=== PATIENT | female | born 1985 | race Caucasian/White ===

== ENCOUNTER 2023-08-06 17:13 | Emergency (ER) | payer OTHER, SELFPAY ==
[2023-08-06 17:23] VITALS: BP 170/110
--- NOTE | 2023-08-06 18:02 | ED.GENMED ---
History of Present Illness
<Olivia Valentine PA-C - Last Filed: 08/06/23 21:03>
General
Chief Complaint: Musculo-Skeletal Complaint
Source: patient
Exam Limitations: none
Time Seen by Provider: 08/06/23 17:49
Nursing documentation reviewed up to this point in time: agreed with
Travel History
Have you had any contact with someone who has COVID-19?: No
Do you have any symptoms of coronavirus? Fever > 100 degrees, chills, cough, shortness of breath, sore throat, loss of taste or smell, muscle aches, or headache?: No
History of Present Illness
History of Present Illness:
Patient is a 37-year-old female at 8 weeks gestation presenting for evaluation of right lower extremity pain and swelling. Patient states that she first noticed the cramping/tight sensation in right calf about the time that she became .
Describes it as similar to a 'charley horse 'feeling. She also endorses some swelling. Pain has persisted and has been worsening throughout . She is able to bear weight. Patient denies any fever, chills, chest pain or shortness of
breath.
Patient is currently taking prednisone and hormonal therapy as was conceived via IVF and has multiple history miscarriages. Patient denies any personal history of blood clots or known clotting disorders. Patient's father does have a
history of DVT.
Patient is following with Dr. Zayas at [facility] who recommended that patient be seen in the emergency department to rule out a blood clot.
Phy Exam
<Olivia Valentine PA-C - Last Filed: 08/06/23 21:03>
Physical Exam
Physical Exam:
General: In no apparent distress, nontoxic
Vitals: Hypertensive, otherwise vital signs stable; afebrile
HEENT: Atraumatic, normocephalic; pupils equal round and reactive light bilaterally, protecting airway
Neck: appears supple, no JVD
CV: Regular rate and rhythm, heart sounds normal, no evidence of cyanosis
Resp: No evidence of respiratory distress, lungs clear bilaterally
Abd: Non-distended
Extremities: Mild tenderness to right mid calf without any appreciable swelling, redness, warmth; DP, PT and popliteal pulse palpable in right lower extremity; neurovascularly intact; no obvious skin changes or palpable cord on right lower extremity
Neuro: alert and oriented x 3; grossly intact
Psych: Normal affect
Skin: Intact, no rashes
Course
<Olivia Valentine PA-C - Last Filed: 08/06/23 21:03>
Orders/Labs/Results
Orders:
Orders
08/06/23 17:18
US Periph Venous LOWER Ext RT Urgent
Comment:
Reason For Exam: calf pain/swelling
08/06/23 19:24
Case Management Consult ONCE
Case Management Consult: Other
Comment: DVT discharge planning
08/06/23 19:44
Complete Blood Count/With Diff Urgent
08/06/23 19:45
Comprehensive Metabolic Panel Urgent
PTT Urgent
Prothrombin Time Urgent
08/06/23 20:43
Enoxaparin Sodium [Lovenox] 80 mg SC NOW STA
08/06/23 20:54
Enoxaparin Sodium [Lovenox] 120 mg SC NOW STA
Abnormal Lab Results
08/06/23 08/06/23
19:44 19:45
WBC 13.5 H 10^3/uL
(4.8-10.8)
RDW 15.9 H %
(11.5-14.5)
Abs Immat Gran (auto) 0.1 H 10^3/uL
(0-0.05)
Absolute Neuts (auto) 9.1 H 10^3/uL
(1.4-6.5)
Absolute Monos (auto) 0.9 H 10^3/uL
(0.1-0.6)
Immature Gran % 1.0 H %
(0-0.5)
Sodium 133 L mmol/L
(135-145)
BUN 24 H mg/dl
(7-17)
Glucose 102 H mg/dl
(70-99)
08/06/23 19:44
08/06/23 19:45
Vital Signs
Initial and Last Documented VS:
Initial Vital Signs
Temp Pulse Resp BP Pulse Ox
98.8 F 100 17 170/110 100
08/06/23 17:23 08/06/23 17:23 08/06/23 17:23 08/06/23 17:23 08/06/23 17:23
Last Documented Vital Signs
Temp Pulse Resp BP Pulse Ox
98.8 F 97 18 152/100 99
08/06/23 17:23 08/06/23 18:31 08/06/23 18:31 08/06/23 18:31 08/06/23 18:31
<Mulu Whitlock MD - Last Filed: 08/06/23 20:27>
Orders/Labs/Results
Orders:
Orders
08/06/23 17:18
US Periph Venous LOWER Ext RT Urgent
Comment:
Reason For Exam: calf pain/swelling
08/06/23 19:24
Case Management Consult ONCE
Case Management Consult: Other
Comment: DVT discharge planning
08/06/23 19:44
Complete Blood Count/With Diff Urgent
08/06/23 19:45
Comprehensive Metabolic Panel Urgent
PTT Urgent
Prothrombin Time Urgent
08/06/23 20:43
Enoxaparin Sodium [Lovenox] 80 mg SC NOW STA
08/06/23 20:54
Enoxaparin Sodium [Lovenox] 120 mg SC NOW STA
Abnormal Lab Results
08/06/23 08/06/23
19:44 19:45
WBC 13.5 H 10^3/uL
(4.8-10.8)
RDW 15.9 H %
(11.5-14.5)
Abs Immat Gran (auto) 0.1 H 10^3/uL
(0-0.05)
Absolute Neuts (auto) 9.1 H 10^3/uL
(1.4-6.5)
Absolute Monos (auto) 0.9 H 10^3/uL
(0.1-0.6)
Immature Gran % 1.0 H %
(0-0.5)
Sodium 133 L mmol/L
(135-145)
BUN 24 H mg/dl
(7-17)
Glucose 102 H mg/dl
(70-99)
08/06/23 19:44
08/06/23 19:45
Vital Signs
Initial and Last Documented VS:
Initial Vital Signs
Temp Pulse Resp BP Pulse Ox
98.8 F 100 17 170/110 100
08/06/23 17:23 08/06/23 17:23 08/06/23 17:23 08/06/23 17:23 08/06/23 17:23
Last Documented Vital Signs
Temp Pulse Resp BP Pulse Ox
98.8 F 97 18 152/100 99
08/06/23 17:23 08/06/23 18:31 08/06/23 18:31 08/06/23 18:31 08/06/23 18:31
<Olivia Valentine PA-C - Last Filed: 08/06/23 21:03>
MDM/Problems Addressed
Differential Diagnosis Includes:
Not limited to: DVT, muscle strain, Tripp's cyst, contusion, effusion
MDM/Problems Addressed:
Patient is a 37-year-old female at 8 weeks gestation presenting for evaluation of persistent atraumatic right lower extremity pain and concern for possible DVT. Patient underwent IVF approximate weeks ago was referred to emergency department to
rule out DVT from fertility specialist as pain has been present for past 6 weeks. No personal history of blood clots. Patient on multiple medications to support early at this moment including hormone replacement and steroids. Patient is
hypertensive, otherwise vital signs stable. Exam as above. Will check ultrasound. No shortness of breath, chest pain, or signs to indicate PE.
Ultrasound shows acute occlusive DVT in right peroneal and gastrocnemius vein. Discussed with patient. She reports local skin reaction to Lovenox early in . Will check basic labs, coag studies. Will touch base with patient's fertility
specialist for input in management of patient given and past reaction to Lovenox.
Attending physician spoke directly with Dr. Berumen's fertility doctor. He recommends discharge with Lovenox injection twice daily. He will follow her closely outpatient. Gave patient first dose in emergency department tonight.
Remainder of prescription sent to pharmacy. Return precautions discussed at length. She will follow with the fertility specialist and [facility] for the duration of . Patient comfortable with plan. All questions answered.
Chronic conditions affecting care:
via IVF
Acute Exacerbation and/or Progression of Chronic Illness:
N/A
<Olivia Valentine PA-C - Last Filed: 08/06/23 21:03>
*Radiology
Radiology exam reviewed: radiology read reviewed
*Pulse Oximetry
Patient hypoxic: no
*EKG
Interpreted by ED Provider?: NA
*Paint Factory Worker Interpretation
Rate: Paint Factory Worker- N/A
*Critical Care Note
Total Time (30-74mins, 75-104mins- exclusive of procedures): Not Applicable
<Olivia Valentine PA-C - Last Filed: 08/06/23 21:03>
Patient Management
Discussion with other providers: [employer] (Fertility specialist)
ED Attending Note
<Olivia Valentine PA-C - Last Filed: 08/06/23 21:03>
-
Portions of this chart may have been created with voice recognition software.� Occasional wrong word or��sound alike� substitutions may have occurred due to the inherent limitations of voice recognition software.
<Mulu Whitlock MD - Last Filed: 08/06/23 20:27>
ED Attending Note
Patient seen and examined by attending physician: Yes
I performed the substantive portion of visit, reviewed & personally made and approve the management plan that is documented in note by myself or MARIN.: Yes
ED Attending Note:
37 yr old female presents with R leg swelling, noted to have occlusive DVT here (see report). She is approx 8 ws , hx mult miscarriages in past, FH (father) of DVT. No cp,sob, etc to suggest PE. No bleeding.
On exam, R le with mild asx swelling, nl pulses, well perfused, FROM. No discoloration/skin changes. (no phlegmasia, etc).
Discharge Plan
Departure
Patient Disposition: Home (Routine Discharge)
Date of Disposition: 08/06/23
Time of Disposition: 20:44
Patient with high blood pressure during this ER visit?: Yes
Condition: Good
Covid-19: Not Applicable
Discharge Problem:
DVT (deep vein thrombosis) in
Instructions: Deep Vein Thrombosis (Blood Clots in the Legs) (DC), Enoxaparin
Prescriptions:
New
enoxaparin [Lovenox] 120 mg/0.8 mL syringe
120 mg SC Q12H 30 Days Qty: 48 0RF
Referrals:
Ailyn Hassan CRNP [Family Provider] -
Activity Restrictions/Additional Instructions:
- Return to the emergency room with any high fevers, chest pain, shortness of breath/difficulty breathing, severe pain/swelling/warmth of right lower extremity, numbness/tingling of right lower extremity, worsening in current symptoms, or any other
concerns
-As discussed�you should use the Lovenox twice a day. A prescription has been sent to your pharmacy. This medication will need to be continued throughout �I have sent the first 30-day supply. Your fertility specialist/[facility] will need to
continue prescription throughout the duration of your . You received your first injection while in the emergency department tonight.
-It is important that you follow-up with your fertility doctor for further evaluation/management and establish care with an [facility] to manage this throughout your .
Interventions
Interventions:
*Risk Screen - Suicide Last Done: 08/06/23 17:22
*General Assessment Last Done: 08/06/23 17:22
*Neglect/Abuse Screening Last Done: 08/06/23 17:22
ED- Fall Risk Assessment Last Done: 08/06/23 18:48
*ED COVID-19 Vaccine History Last Done: 08/06/23 17:22
ED-Musculoskeletal Assessment Last Done: 08/06/23 18:47
Discharge Date and Time
Print Language: QATARI
[2023-08-06 18:31] VITALS: BP 152/100
[2023-08-06 19:55] LABS: % Basophils 0.5 % (0-2); % Eosinophils 1.2 % (0-6); % Lymphocytes 23.4 % (20.5-51.1); % Monocytes 6.6 % (1.7-9.3); % Neutrophils 67.3 % (42.2-75.2); Absolute Basophils 0.1 10^3/uL (0-0.2); Absolute Eosinophils 0.2 10^3/uL (0-0.7); Absolute Immature Granulocytes 0.1 10^3/uL (0-0.05); Absolute Lymphocytes 3.2 10^3/uL (1.2-3.4); Absolute Monocytes 0.9 10^3/uL (0.1-0.6); Absolute Neutrophils 9.1 10^3/uL (1.4-6.5); Hematocrit 40.8 % (37.0-47.0); Hemoglobin 13.7 g/dL (12.0-16.0); Mean Corp Hgb Conc. 33.6 g/dL (33.0-37.0); Mean Corpuscular Hgb 27.5 pg (27.0-31.0); Mean Corpuscular Volume 81.8 fL (81.0-99.0); Mean Platelet Volume 9.8 fL (7.4-10.4); Nucleated Red Blood Cells % 0 %; Platelet Count 215 10^3/uL (130-400); Red Blood Cell Count 4.99 10^6/uL (4.20-5.40); Red Cell Dist. Width 15.9 % (11.5-14.5); White Blood Cell Count 13.5 10^3/uL (4.8-10.8)
[2023-08-06 20:05] LABS: INR 1.03; PT 13.5 Sec (11.4-14.6)
[2023-08-06 20:06] LABS: APTT 23.9 Sec (23.4-35.0)
[2023-08-06 20:08] LABS: ALT (SGPT) 20 U/L (0-35); AST (SGOT) 18 U/L (14-36); Albumin 4.3 g/dl (3.5-5.0); Alkaline Phosphatase 53 U/L (38-126); Blood Urea Nitrogen 24 mg/dl (7-17); Calcium 9.8 mg/dl (8.4-10.2); Carbon Dioxide 25 mmol/L (22-30); Chloride 98 mmol/L (98-107); Glucose 102 mg/dl (70-99); Potassium 4.1 mmol/L (3.5-5.1); Sodium 133 mmol/L (135-145); Total Bilirubin 0.4 mg/dl (0.2-1.3); eGFR > 60.00
[2023-08-06] MEDS: LOVENOX 120 MG SC (20:59)
--- NOTE | 2023-08-07 09:58 | CM ---
F/U phone call to patient Juliet.
Per Juliet she is waiting for pharmacy to call to let her know Lovenox rx is available.
Per Juliet she has a follow up appointment with Dr Zayas, fertility specialist on Friday and she is aware blood work will need to be ordered and required while on the Lovenox.
Per [facility] [phone], they will not have Lovenox script in until tomorrow.
Spoke with Juliet, she also called and [facility] and they have 2 syringes available for her today which she is on the way to picker tender helper now, and the rest of the script will be available tomorrow.
TC to Dr Brown office [phone], spoke with Coty, she verified appointment for Friday am and added a notation on chart re recent ER visit (08/06/23) and d/c on Subcutaneous Lovenox so they can follow for required lab work.
== END 2023-08-06 21:17 | disposition home or self-care (01) ==
LOC: EMR 17:13
PROVIDERS: Physician Assistant; EMERGENCY PHYSICIAN Emergency Medicine; FAMILY PHYSICIAN Nurse Practitioner Family
DX: O26.891 Other specified pregnancy related conditions, first trimester (principal); I82.451 Acute embolism and thrombosis of right peroneal vein; I82.461 Acute embolism and thrombosis of right calf muscular vein; Z3A.08 8 weeks gestation of pregnancy
CPT/HCPCS: 99284; 96372; 80053; 85025; 85610; 85730; 93971

== ENCOUNTER → 2024-02-03 16:22 | Outpatient (REF) | payer OTHER, SELFPAY | LOC: PNTC 16:22 | DX: I82.403 Acute embolism and thrombosis of unspecified deep veins of lower extremity, bilateral (principal) | CPT/HCPCS: 59025; 76816 ==

== ENCOUNTER → 2024-03-01 15:07 | Outpatient (REF) | payer OTHER, SELFPAY | LOC: HWRAD 15:07 | PROVIDERS: ATTENDING PHYSICIAN Internal Medicine Hematology & Oncology; FAMILY PHYSICIAN Nurse Practitioner Family | DX: I82.401 Acute embolism and thrombosis of unspecified deep veins of right lower extremity (principal); O99.419 Diseases of the circulatory system complicating pregnancy, unspecified trimester | CPT/HCPCS: 93970 ==